=== PATIENT | male | born 1990 | race Asian ===

== ENCOUNTER 2016-05-18 01:34 | Emergency (ER) | payer SELFPAY ==
--- NOTE | 2016-05-18 02:13 | ED ---
Dorota Goodwin Erika, scribed for Cosme Márquez MD on 05/18/16 at 0152 . Substance Abuse/Use - HPI Summary HPI Summary: Patient is a 25-year-old male BIBA and police to the ED intoxicated. Per EMS, patient was found asleep in front of a bar, and has been semi-responsive with stable vitals. Police have prior knowledge of pt and state he can be combative when more sober. - History Of Current Complaint Stated Complaint: ETOH Time Seen by Provider: 05/18/16 01:36 Hx Obtained From: Patient Hx From Patient Unobtainable Due To: Altered Mental Status - Intoxicated Onset/Duration of Drug/ETOH Abuse: Hours Ingestion History: Type/Name Of Drug - EtOH Timing Of Abuse: Daily Severity Currently: Moderate Character: Stuporous Alleviating Factor(s): Nothing Associated Signs And Symptoms: Altered Mental Status - Allergies/Home Medications Allergies/Adverse Reactions: Allergies Allergy/AdvReac Type Severity Reaction Status Date / Time Unable to Obtain Allergy Verified 03/04/14 04:47 PMH/Surg Hx/FS Hx/Imm Hx - Immunization History Date of Tetanus Vaccine: unknown - Family History Known Family History: Positive: Unknown - Level 5 caveat - AMS intoxication - Social History Alcohol Use: Daily Hx Tobacco Use: Yes Smoking Status (MU): Current Every Day Smoker Type: Cigarettes Review of Systems - ROS Summary Review of Systems Summary: LEVEL 5 CAVEAT - AMS INTOXICATION. Neurological: Other - Intoxicated, asleep All Other Systems Reviewed And Are Negative: No Physical Exam Triage Information Reviewed: Yes Vital Signs On Initial Exam: Initial Vital Signs Temp 97.2 F 05/18/16 01:58 Pulse 70 05/18/16 01:58 Resp 16 05/18/16 01:58 BP 103/49 05/18/16 01:58 Pulse Ox 94 05/18/16 01:58 Vital Signs Reviewed: Yes Completion Of Physical Exam Limited Due To: Altered Mental Status - intoxicated , Level 5 Appearance: Positive: Well-Appearing, No Pain Distress Skin: Positive: Warm Head/Face: Positive: Normal Head/Face Inspection Eyes: Positive: BASSAM ENT: Positive: Hearing grossly normal Neck: Positive: Supple Respiratory/Lung Sounds: Positive: Breath Sounds Present Cardiovascular: Positive: RRR Abdomen Description: Positive: Nontender, Soft Bowel Sounds: Positive: Present Musculoskeletal: Positive: Strength/ROM Intact Neurological: Positive: Sensory/Motor Intact Psychiatric: Positive: Affect/Mood Appropriate Diagnostics - Vital Signs Vital Signs Temp Pulse Resp BP Pulse Ox 05/18/16 01:58 97.2 F 70 16 103/49 94 - Laboratory Lab Statement: Any lab studies that have been ordered have been reviewed, and results considered in the medical decision making process. Re-Evaluation - Re-Evaluation First Eval Re-Evaluation Time: 05:43 Change: Improved Comment: Pt has a ride home from his brother and will be discharged to him Course/Dx - Course Assessment/Plan: A 25 y/o M presents to the ED intoxicated. Pt is unable to answer any questions, and is sleeping comfortably in the ED. Pt is monitored. Serum alcohol is 470. After rest and observation, pt is discharged to his brother who comes to pick him up. - Diagnoses Provider Diagnoses: Alcohol intoxication Discharge - Discharge Plan Condition: Stable Disposition: HOME Patient Education Materials: Alcohol Intoxication (ED) Referrals: [facility] [Outside] The documentation as recorded by the Dorota reyes Erika accurately reflects the service I personally performed and the decisions made by me, Cosme Márquez MD.
[2016-05-18 05:52] VITALS: BP 90/40
== END 2016-05-18 05:51 | disposition home or self-care (01) ==
LOC: ED 01:34
DX: F10.129 Alcohol abuse with intoxication, unspecified (principal); R41.82 Altered mental status, unspecified; F17.210 Nicotine dependence, cigarettes, uncomplicated
CPT/HCPCS: 36415; 80320; 99282; G0480